=== PATIENT | female | born 1985 | race Caucasian/White ===

== ENCOUNTER 2019-11-15 23:34 | Emergency (ER) | payer MEDICAID ==
[~2019-11-15] VITALS: Ht 160 cm; Wt 106.3 kg
[2019-11-15 23:43] VITALS: BP 150/83
[2019-11-16] MEDS ORDERED: PRED20TA PO (00:33)
== END 2019-11-16 00:44 | disposition home or self-care (01) ==
LOC: ER 23:35
DX: L25.9 Unspecified contact dermatitis, unspecified cause (principal); Z90.710 Acquired absence of both cervix and uterus; Z79.899 Other long term (current) drug therapy
CPT/HCPCS: 99283

== ENCOUNTER 2020-03-21 15:42 | Emergency (ER) | payer MEDICAID ==
[~2020-03-21] VITALS: Ht 160 cm; Wt 101.2 kg
[2020-03-21 16:26] VITALS: BP 142/100
== END 2020-03-21 19:44 | disposition home or self-care (01) ==
LOC: ER 15:42
DX: S39.012A Strain of muscle, fascia and tendon of lower back, initial encounter (principal); S29.012A Strain of muscle and tendon of back wall of thorax, initial encounter; Z90.710 Acquired absence of both cervix and uterus; X50.1XXA Overexertion from prolonged static or awkward postures, initial encounter; Y93.89 Activity, other specified; Y92.89 Other specified places as the place of occurrence of the external cause; Y99.8 Other external cause status
CPT/HCPCS: 72128; 72131; 99284

== ENCOUNTER 2020-08-21 21:13 | Emergency (ER) | payer MEDICAID ==
[~2020-08-21] VITALS: Ht 160 cm; Wt 104.1 kg
[2020-08-21 21:18] VITALS: BP 157/89
== END 2020-08-21 23:20 | disposition home or self-care (01) ==
LOC: ER 21:13
DX: M77.9 Enthesopathy, unspecified (principal); Z90.710 Acquired absence of both cervix and uterus
CPT/HCPCS: 29125; 99283

== ENCOUNTER 2022-12-28 18:34 | Emergency (ER) | payer MEDICAID ==
[~2022-12-28] VITALS: Ht 160 cm; Wt 110.4 kg
[2022-12-28 18:54] VITALS: BP 156/89
[2022-12-28] MEDS ORDERED: ketorolac tromethamine 15mg/ml inj. IM ONE (20:30)
== END 2022-12-28 22:41 | disposition home or self-care (01) ==
LOC: ER 18:34
DX: S93.401A Sprain of unspecified ligament of right ankle, initial encounter (principal); Z90.710 Acquired absence of both cervix and uterus; Z88.1 Allergy status to other antibiotic agents; X58.XXXA Exposure to other specified factors, initial encounter; Y93.89 Activity, other specified; Y92.89 Other specified places as the place of occurrence of the external cause; Y99.8 Other external cause status
CPT/HCPCS: 29515; 73630; 96372; 99284; J1885; L1930

== ENCOUNTER 2023-10-08 20:09 | Emergency (ER) | payer MEDICAID ==
[~2023-10-08] VITALS: Ht 160 cm; Wt 109.1 kg
[2023-10-08 20:17] VITALS: BP 139/102; PULSE 78; RESP 17; TEMP 97.8; O2SAT 98
[2023-10-08] MEDS ORDERED: NAPR-56 PO (20:50)
== END 2023-10-08 21:09 | disposition home or self-care (01) ==
LOC: ER 20:11
DX: S93.601A Unspecified sprain of right foot, initial encounter (principal); Z88.1 Allergy status to other antibiotic agents; Z90.710 Acquired absence of both cervix and uterus; X58.XXXA Exposure to other specified factors, initial encounter; Y93.89 Activity, other specified; Y92.89 Other specified places as the place of occurrence of the external cause; Y99.8 Other external cause status
CPT/HCPCS: 73630; 99283

== ENCOUNTER 2024-02-04 13:43 | Outpatient (CLI) | payer MEDICAID | END 2024-02-04 23:59 | disposition home or self-care (01) | LOC: MRI 13:43 | PROVIDERS: ATTEND Nurse Practitioner | DX: M50.121 Cervical disc disorder at C4-C5 level with radiculopathy (principal); M48.02 Spinal stenosis, cervical region ==